=== PATIENT | male | born 1955 | race Caucasian/White ===

== ENCOUNTER 2022-06-13 14:27 | Emergency (ER) | payer BC ==
[~2022-06-13] VITALS: Ht 165.1 cm; Wt 71.7 kg
[2022-06-13] MEDS ORDERED: LOSA100T31 PO (14:36)
[2022-06-13] MEDS ORDERED: ROSU10TA2 PO (14:36)
[2022-06-13] MEDS ORDERED: AMLO-212 PO (14:36)
[2022-06-13] MEDS ORDERED: LIDOCAINE HCL 1% 20 ML VIAL IJ ONE (15:00)
[2022-06-13] MEDS ORDERED: LIDOCAINE HCL 1% 20 ML VIAL ONE (15:08)
[2022-06-13 15:09] LABS: HEMATOCRIT 40.4 % (36.7-47.1); MEAN CORPUSCULAR HEMOGLOBIN 29.8 uug (23.8-33.4); MEAN CORPUSCULAR VOLUME 88.5 fL (73.0-96.2); PLATELET COUNT (AUTO) 239 K/uL (152-348)
[2022-06-13] MEDS ORDERED: PHENYLEPHRINE 10 MG/1 ML VIAL ONE (15:21)
[2022-06-13] MEDS ORDERED: PHENYLEPHRINE IV 20 MG in IV DEXTROSE 5% 250 ML IV ONE (15:30)
--- NOTE | 2022-06-13 16:22 | NUR ---
10 mg phenylephrine injected into 99ml NS (diluted to 100 mcg/cc), given by .
[2022-06-13 16:28] LABS: ABG BASE EXCESS -4.3 mmol/L; ABG HCO3 24.1 mmol/L; ABG PCO2 56.7 mmHg (35.0-45.0); ABG PH 7.247 (7.350-7.450); ABG PO2 42.7 mmHg (75.0-100.0); ABG TOTAL HEMOGLOBIN 17.5 G/dL (13.5-18.0); COHb 0.7 % (0.5-1.5); MetHb 0.3 % (0.0-1.5); O2Hb 73.6 % (94.0-97.0); VENT MODE room air
--- NOTE | 2022-06-13 18:22 | NUR ---
PT WAS D/C'd TO HOME. D/C INSTRUCTIONS GIVEN TO THE PT BY DR BALDERAS. NO BLEEDING . NO S/S OF DISTRESS.
[2022-06-13 18:23] VITALS: BP 142/79
== END 2022-06-13 18:24 | disposition home or self-care (01) ==
LOC: ER 14:27
DX: N48.39 Other priapism (principal); N52.9 Male erectile dysfunction, unspecified
CPT/HCPCS: 36415; 36600; 82803; 85025; A4663; C1758; J2370; J3490